=== PATIENT | female | born 1980 | race Caucasian/White ===

== ENCOUNTER 2018-06-29 04:36 | Emergency (ER) | payer BC ==
[~2018-06-29] VITALS: Ht 165.1 cm; Wt 58.1 kg
--- NOTE | 2018-06-29 04:59 | Emergency Room Report ---
History of Present Illness General Chief Complaint: Chest Pain Source: Patient Present Illness HPI Patient presents with complaints of pain to the mid chest area for the past 2 days Reports that she was initially taking some packages out of her trunk of her car She felt a sharp pain at that time Since then she has felt pain off-and-on Mostly the pain has been there during the whole time Denies any change with position or exertion Denies any change with inspiration or expiration Denies any fevers or chills denies any cough denies any epigastric pain Patient reports that high cholesterol runs in her family Allergies: Coded Allergies: No Known Allergies (Unverified , 06/29/18) Patient History Past Medical History: see triage record Pertinent Family History: none Last Menstrual Period: 06/23/18 Now: No : 0 Reviewed Nursing Documentation: PMH: Agreed; PSxH: Agreed Nursing Documentation-PMH Hx Cardiac Problems: Yes - arrhythmia Hx Pacemaker: No Hx COPD: No Hx Diabetes: No Hx Cancer: No Hx Gastrointestinal Problems: No History Of Psychiatric Problem: Yes - anxiety Hx Neurological Problems: No Hx Cerebrovascular Accident: No Hx Seizures: No Review of Systems All Other Systems: negative except mentioned in HPI Physical Exam Vital Signs Date Time Temp Pulse Resp B/P (MAP) Pulse Ox O2 Delivery O2 Flow Rate FiO2 06/29/18 04:44 97.9 68 17 131/84 98 Room Air Sp02 EP Interpretation: reviewed, normal General Appearance: well appearing, no apparent distress Head: normocephalic, atraumatic Eyes: bilateral eye PERRL, bilateral eye EOMI ENT: hearing grossly normal, normal pharynx, TMs + canals normal, uvula midline Neck: full range of motion, supple, no meningismus, no bony tend Respiratory: lungs clear, normal breath sounds, no rhonchi, no respiratory distress, no retraction, no accessory muscle use Cardiovascular #1: normal peripheral pulses, regular rate, rhythm, no edema, no gallop, no JVD, no murmur Gastrointestinal: normal bowel sounds, non tender, soft, no mass, no organomegaly, non-distended, no guarding, no hernia, no pulsatile mass, no rebound Genitourinary: no CVA tenderness Musculoskeletal: normal inspection Neurologic: oriented x3, responsive, peace officer III-XII nml as tested, motor strength/ tone normal, sensory intact Psychiatric: mood/affect normal Skin: normal color, no rash, warm/dry, palpation normal Lymphatic: normal inspection, no adenopathy Medical Decision Making Diagnostic Impression: Primary Impression: Chest pain ER Course Patient is a fairly complex patient with multiple differential to consideration including but not limited to cardiac cardiopulmonary and vascular emergencies Patient's EKG is normal Chest x-ray is normal Initially we wanted to obtain urine given the patient's age There was some report from laboratory that they were unable to run the urine test for At this time I did ask the patient regarding potential/concern for and the patient reports that she is not and does not need to be tested Patient discharged in stable condition for close outpatient follow-up EKG Diagnostic Results Rate: normal Rhythm: NSR ST Segments: no acute changes Rhythm Strip Diag. Results EP Interpretation: yes Rate: 67 Rhythm: NSR, no PVC's, no ectopy Chest X-Ray Diagnostic Results Chest X-Ray Diagnostic Results : Chest X-Ray Ordered: Yes # of Views/Limited/Complete: 1 View Indication: Chest Pain EP Interpretation: Yes Interpretation: no consolidation, no effusion, no pneumothorax Impression: No acute disease Electronically Signed by: Essie Anna DO Last Vital Signs Date Time Temp Pulse Resp B/P (MAP) Pulse Ox O2 Delivery O2 Flow Rate FiO2 06/29/18 04:44 97.9 68 17 131/84 98 Room Air Status: improved Disposition: HOME, SELF-CARE Condition: Improved Scripts Ibuprofen* (MOTRIN*) 600 Mg Tablet 600 MG ORAL Q8H PRN for For Pain, #15 TAB 0 Refills Prov: Essie Anna DO 06/29/18 Additional Instructions: Patient is provided with the discharge instructions notified to follow up with primary doctor in the next 2-3 days otherwise return to the er with any worsening symptoms. Please note that this report is being documented using [email or web address] technology. This can lead to erroneous entry secondary to incorrect interpretation by the dictating instrument. Essie Anna DO Jun 29, 2018 05:00
[2018-06-29 05:00] VITALS: BP 131/84
[2018-06-29 05:22] VITALS: BP 114/73
[2018-06-29] MEDS ORDERED: IBUPROFEN600 MG ORAL (05:27)
[2018-06-29 05:41] VITALS: BP 114/73
--- NOTE | 2018-06-29 12:17 | Diagnostic Imaging Report ---
Indication: Chest pain Technique: One view of the chest Comparison: none Findings: Lungs and pleural spaces are clear. Heart size is normal Impression: No acute process
--- NOTE | 2018-07-01 14:14 | Cardiology Report ---
APPROVED REPORT EKG Measurement Heart [id number] Normal sinus rhythm Normal ECG
== END 2018-06-29 05:40 | disposition home or self-care (01) ==
LOC: EMR 04:48
DX: R07.9 Chest pain, unspecified (principal); F41.9 Anxiety disorder, unspecified; Z83.42 Family history of familial hypercholesterolemia; Z86.79 Personal history of other diseases of the circulatory system
CPT/HCPCS: 71045; 93005; 99283